=== PATIENT | female | born 1950 | race Caucasian/White ===

== ENCOUNTER 2019-02-03 07:40 | Day surgery (SDC) | payer MEDICARE, OTHER ==
[2019-02-03] MEDS ORDERED: MIDAZOLAM 1 MG/ML 2 ML INJ (09:22)
[2019-02-03] MEDS ORDERED: LIDOCAINE 2% (SDV) 5 ML INJ (09:22)
[2019-02-03] MEDS ORDERED: PROPOFOL 20 ML (09:22)
== END 2019-02-03 11:27 | disposition home or self-care (01) ==
LOC: GIL 07:40
DX: Z12.11 Encounter for screening for malignant neoplasm of colon (principal); K57.30 Diverticulosis of large intestine without perforation or abscess without bleeding; E11.9 Type 2 diabetes mellitus without complications; E78.5 Hyperlipidemia, unspecified; Z86.73 Personal history of transient ischemic attack (TIA), and cerebral infarction without residual deficits; Z79.4 Long term (current) use of insulin
CPT/HCPCS: 45378; 82962